=== PATIENT | male | born 1935 ===

== ENCOUNTER 2018-03-15 11:17 | Inpatient (IN) | payer OTHER ==
[~2018-03-15] VITALS: Ht 185.4 cm; Wt 78.0 kg
[2018-03-15] MEDS ORDERED: XARELTO15 MG (11:38)
[2018-03-15] MEDS ORDERED: JANUVIA50 MG (11:38)
[2018-03-15] MEDS ORDERED: AVAPRO150 MG (11:39)
[2018-03-15] MEDS ORDERED: AMLODIPINE BES2.5 MG (11:39)
[2018-03-15] MEDS ORDERED: ATORVASTATIN CA10 MG (11:39)
[2018-03-15] MEDS ORDERED: TRAM1TAB98 (11:40)
[2018-03-18] MEDS ORDERED: LEVAQUIN750 MG PO (16:19)
[2018-03-18] MEDS ORDERED: ULTRACET PO (16:27)
== END 2018-03-18 16:37 | disposition home or self-care (01) | DRG 264 ==
LOC: ER 11:17 → MEDI 18:39
PROC: 0JBQ0ZZ Excision of Right Foot Subcutaneous Tissue and Fascia, Open Approach (ICD-10-PCS; principal; 2018-03-16)
PROC: B44HZZZ Ultrasonography of Bilateral Lower Extremity Arteries (ICD-10-PCS; 2018-03-16)
DX: I87.2 Venous insufficiency (chronic) (peripheral) (principal); L97.318 Non-pressure chronic ulcer of right ankle with other specified severity; N17.8 Other acute kidney failure; N39.0 Urinary tract infection, site not specified; E11.22 Type 2 diabetes mellitus with diabetic chronic kidney disease; I12.9 Hypertensive chronic kidney disease with stage 1 through stage 4 chronic kidney disease, or unspecified chronic kidney disease; N18.3 Chronic kidney disease, stage 3 (moderate); E78.4 Other hyperlipidemia; E86.0 Dehydration; B96.4 Proteus (mirabilis) (morganii) as the cause of diseases classified elsewhere

== ENCOUNTER 2018-07-15 11:46 | Emergency (ER) | payer OTHER ==
[~2018-07-15] VITALS: Ht 182.9 cm; Wt 76.2 kg
[~2018-07-15 11:46] MED LIST: AMLODIPINE BES2.5 MG; ATORVASTATIN CA10 MG; AVAPRO150 MG; JANUVIA50 MG; LEVAQUIN750 MG PO; TRAM1TAB98; ULTRACET PO; XARELTO15 MG
== END 2018-07-15 15:09 | disposition home or self-care (01) ==
LOC: ER 11:46 → CPU-OBS 12:22 → ER 12:22
DX: I48.91 Unspecified atrial fibrillation (principal)